=== PATIENT | male | born 1985 | race Hispanic/Latino ===

== ENCOUNTER 2021-07-03 08:25 | Emergency (ER) | payer SELFPAY ==
[~2021-07-03] VITALS: Ht 157.5 cm; Wt 63.6 kg
[2021-07-03] MEDS ORDERED: OMNI-PAC300 MG PO (09:52)
[2021-07-03 10:22] VITALS: BP 155/93
== END 2021-07-03 10:22 | disposition home or self-care (01) | DRG 605 ==
LOC: ED 08:25
PROC: 0JQK3ZZ Repair Left Hand Subcutaneous Tissue and Fascia, Percutaneous Approach (ICD-10-PCS; principal; 2021-07-03)
DX: S61.012A Laceration without foreign body of left thumb without damage to nail, initial encounter (principal); W26.0XXA Contact with knife, initial encounter; Y93.G9 Activity, other involving cooking and grilling; Y92.009 Unspecified place in unspecified non-institutional (private) residence as the place of occurrence of the external cause